=== PATIENT | female | born 1960 | race Caucasian/White ===

== ENCOUNTER 2017-02-20 20:05 | Emergency (ER) | payer SELFPAY ==
[~2017-02-20] VITALS: Ht 162.6 cm; Wt 76.2 kg
[2017-02-20 20:11] VITALS: Ht 162.6 cm; Wt 76.2 kg
[2017-02-20 23:00] VITALS: BP 142/91
== END 2017-02-20 23:00 | disposition home or self-care (01) ==
LOC: ED 20:05
DX: B34.9 Viral infection, unspecified (principal)
CPT/HCPCS: Q0162